=== PATIENT | male | born 1995 | race Caucasian/White ===

== ENCOUNTER 2017-09-25 13:32 | Emergency (ER) | payer OTHER ==
[~2017-09-25] VITALS: Ht 188 cm; Wt 83.9 kg
== END 2017-09-25 18:15 | disposition home or self-care (01) ==
LOC: ER 13:32
DX: M79.644 Pain in right finger(s) (principal); G89.11 Acute pain due to trauma

== ENCOUNTER 2020-12-18 11:30 | Emergency (ER) | payer OTHER ==
[~2020-12-18] VITALS: Ht 185.4 cm; Wt 99.8 kg
[2020-12-18] MEDS ORDERED: NORFLEX100MG PO (14:32)
[2020-12-18] MEDS ORDERED: KETO10TA2 PO (14:32)
== END 2020-12-18 14:40 | disposition home or self-care (01) ==
LOC: ER 11:30
DX: R51.9 Headache, unspecified (principal); M54.2 Cervicalgia